=== PATIENT | male | born 1985 | race Caucasian/White ===

== ENCOUNTER 2016-12-29 14:28 | Emergency (ER) | payer OTHER ==
[2016-12-29 14:55] VITALS: BP 115/73; PULSE 106; RESP 16; TEMP 99; O2SAT 95
--- NOTE | 2016-12-29 15:21 | EDPHY ---
H & P Time Seen by Provider: 12/29/16 14:54 HPI/ROS: CHIEF COMPLAINT: Sore throat cough and runny nose History by patient HISTORY OF PRESENT ILLNESS: 29-year-old man presents with 5-7 days of URI symptoms which have gotten worse over the last 3 days. He complains of sore throat, ear pain and cough occasionally productive of green sputum. He has nasal congestion and a runny nose. He denies fever, chills, nausea vomiting or diarrhea. He has had no rash. He has tried some kind of expectorant without relief. He has tried Excedrin with minimal relief. He smokes marijuana but not cigarettes. REVIEW OF SYSTEMS: As in HPI, and all other systems reviewed and are negative Smoking Status: Never smoked Physical Exam: General Appearance: Alert and no distress. Head: normocephalic, atraumatic, no sinus tenderness Eyes: Pupils equal and round no injection. Ears: TM occluded by cerumen bilaterally OP: mucus membranes moist, no tonsillar enlargement, positive redness but no exudates Neck: no meningismus, bilateral nontender cervical nodes, no submandibular nodes Respiratory: Chest is nontender, lungs are clear to auscultation. Cardiac: regular rate and rhythm. Gastrointestinal: Abdomen is soft and nontender, no masses, bowel sounds normal. Musculoskeletal: Neck is supple and nontender. Extremities have full range of motion and are nontender. Skin: No rashes or lesions. Constitutional: Initial Vital Signs Temperature (C) 37.2 C 12/29/16 14:44 Heart Rate 106 H 12/29/16 14:44 Respiratory Rate 16 12/29/16 14:44 Blood Pressure 115/73 12/29/16 14:44 O2 Sat (%) 95 12/29/16 14:44 O2 Delivery Mode Room Air Allergies/Adverse Reactions: No Known Allergies Allergy (Unverified 12/29/16 14:44) Home Medications: Medication Instructions Recorded NK [No Known Home Meds] 12/29/16 MDM/Departure - [facility] ED Course/Re-evaluation: 31-year-old man presents with upper respiratory infection with no evidence of systemic toxicity. We discussed conservative measures and home care. Patient is requesting a work excuse for the next 2 days which he was given. - Depart Disposition: Home, Routine, Self-Care Clinical Impression: Acute upper respiratory infection Condition: Good Instructions: Upper Respiratory Infection (ED) Additional Instructions: You were seen by Dr. Joleen Krishnan. Use a humidifier in the room where you sleep. Try hot drinks with honey. Take ibuprofen 600 mg 4 times a day and Tylenol 1000 mg 4 times a day as needed for fever and/or pain. The maximum dose of aspirin is 4000 mg a day (325-1000 mg 4 times daily) for up to 10 days in a row. Return for any worsening or new concerns. Stand Alone Forms: Work Excuse Referrals: NONE *PRIMARY CARE P,. [Primary Care Provider] - As per Instructions
== END 2016-12-29 15:27 | disposition home or self-care (01) ==
LOC: CED 14:28
DX: J06.9 Acute upper respiratory infection, unspecified (principal)